=== PATIENT | male | born 1945 | race Hispanic/Latino ===

== ENCOUNTER 2018-10-23 19:35 | Inpatient (IN) | payer OTHER | END 2018-10-30 12:00 | disposition home or self-care (01) | LOC: EDH 19:35 → 2AH 10-24 12:40 → EDHIP 22:28 → 2CH 23:49 | DX: I48.91 Unspecified atrial fibrillation (principal); E11.10 Type 2 diabetes mellitus with ketoacidosis without coma; E87.3 Alkalosis; R10.13 Epigastric pain; R06.02 Shortness of breath ==